=== PATIENT | female | born 1995 | race African-American/Black ===

== ENCOUNTER 2018-03-21 11:47 | Emergency (ER) | payer OTHER ==
[2018-03-21 11:56] VITALS: BP 126/83
[2018-03-21 12:17] LABS: BILIRUBIN,URINE NEGATIVE (NEGATIVE); GLUCOSE, URINE (UA) NEGATIVE (NEGATIVE); KETONES,URINE (UA) NEGATIVE (NEGATIVE); LEUKOCYTE ESTERASE, URINE NEGATIVE (NEGATIVE); NITRITE,URINE NEGATIVE (NEGATIVE); OCCULT BLOOD,URINE NEGATIVE (NEGATIVE); PROTEIN,URINE NEGATIVE (NEGATIVE); UROBILINOGEN,URINE 0.2 (NORMAL) E.U./dL (NORMAL)
[2018-03-21 12:20] LABS: CLARITY,URINE CLEAR (CLEAR)
[2018-03-21 12:21] LABS: HCG UR QUAL NEGATIVE
[2018-03-21] MEDS ORDERED: KETOROLAC 30 MG/ML VIAL IVP STA (13:06)
[2018-03-21] MEDS ORDERED: PROCHLORPERAZINE 10 MG/2 ML VIAL IVP STA (13:06)
[2018-03-21] MEDS ORDERED: diphenhydrAMINE INJ 50 MG/ML VIAL IVP STA (13:06)
[2018-03-21] MEDS ORDERED: SODIUM CHLORIDE 0.9% 1,000 ML IV ONE (13:06)
--- NOTE | 2018-03-21 13:13 | ED Physician Documentation ---
History of Present Illness - Stated complaint Stated Complaint: NECK PX,MIGRAINE,VISION CHANGES,DIZZY,NAUSEA-GLF - Chief complaint Chief Complaint: Neuro - History obtained from History obtained from: Patient - History of Present Illness Timing: How many days ago (2) Pain level max: 8 Pain level now: 8 - Additonal information Additional information: 22-year-old female status post a trip and fall yesterday, landing on the handle that was sticking up out of a piece of luggage, hitting her on the right side of the neck. Since that time has had pain in the right side of the neck that is now radiating up into the head. Causing nausea and vomiting. States she does have migraines and this does feel similar to her prior migraines. She states that she feels like her vision is "going in and out". Is not having any focal neurological deficits. Is not . Does intermittently breast-feed. Worse with movement and bright lights. Better with rest Review of Systems Constitutional: denies: Fever, Chills Respiratory: denies: Cough GI: reports: Nausea, Vomiting (x2). denies: Diarrhea : denies: Dysuria, Frequency, Hesitancy, Now EGA Musculoskeletal: denies: Back pain Neurologic: denies: Focal weakness, Numbness, Headache PD PAST MEDICAL HISTORY - Past Medical History Past Medical History: Yes Neuro: Migraines - Past Surgical History Past Surgical History: Yes General: Appendectomy - Present Medications Home Medications: Ambulatory Orders Medication Instructions Recorded Confirmed No Known Home Medications 03/21/18 03/21/18 - Allergies Allergies/Adverse Reactions: Allergies Allergy/AdvReac Type Severity Reaction Status Date / Time No Known Drug Allergies Allergy Verified 03/21/18 11:56 - Social History Does the pt smoke?: No Smoking Status: Never smoker Does the pt drink ETOH?: Yes Does the pt have substance abuse?: No PD ED PE NORMAL - Vitals Vital signs reviewed: Yes - General General: Alert and oriented X 3, No acute distress - HEENT HEENT: Atraumatic, PERRL, Ears normal, Moist mucous membranes, Pharynx benign - Neck Neck: Supple, no meningeal sign, No bony TTP, No JVD, No bruit - Cardiac Cardiac: RRR, Strong equal pulses - Respiratory Respiratory: No respiratory distress, Clear bilaterally - Abdomen Abdomen: Soft, Non tender, Non distended - Back Back: No spinal TTP - Derm Derm: Warm and dry, No rash - Neuro Neuro: Alert and oriented X 3, 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, No motor deficit, No sensory deficit, Normal speech Eye Opening: Spontaneous Motor: Obeys Commands Verbal: Oriented GCS Score: 15 Results - Vitals Vitals: Vital Signs - 24 hr 03/21/18 11:54 Temperature 36.1 C L Heart Rate 74 Respiratory 18 Rate Blood Pressure 126/83 H O2 Saturation 100 Oxygen O2 Source Room air - Labs Labs: Laboratory Tests 03/21/18 03/21/18 03/21/18 12:04 12:04 13:13 WBC 6.5 RBC 4.73 Hgb 11.8 L Hct 35.6 L MCV 75.2 L MCH 24.9 L MCHC 33.1 RDW 16.3 H Plt Count 161 MPV 9.6 Neut # (Auto) 4.7 Lymph # (Auto) 1.2 L [place] # (Auto) 0.5 Eos # (Auto) 0.1 Baso # (Auto) 0.0 Absolute Nucleated RBC 0.00 Nucleated RBC % 0.0 Sodium Potassium Chloride Carbon Dioxide Anion Gap BUN Creatinine Estimated GFR (MDRD) Glucose Calcium Total Bilirubin AST ALT Alkaline Phosphatase Total Protein Albumin Globulin Albumin/Globulin Ratio Lipase Urine Color YELLOW Urine Clarity CLEAR Urine pH 7.0 Ur Specific [place] 1.025 1.025 Urine Protein NEGATIVE Urine Glucose (UA) NEGATIVE Urine Ketones NEGATIVE Urine Occult Blood NEGATIVE Urine Nitrite NEGATIVE Urine Bilirubin NEGATIVE Urine Urobilinogen 0.2 (NORMAL) Ur Leukocyte Esterase NEGATIVE Ur Microscopic Review NOT INDICATED Urine Culture Comments NOT INDICATED Urine HCG, Qual NEGATIVE 03/21/18 13:13 WBC RBC Hgb Hct MCV MCH MCHC RDW Plt Count MPV Neut # (Auto) Lymph # (Auto) [place] # (Auto) Eos # (Auto) Baso # (Auto) Absolute Nucleated RBC Nucleated RBC % Sodium 137 Potassium 3.8 Chloride 107 Carbon Dioxide 23 Anion Gap 7.0 BUN 15 Creatinine 0.7 Estimated GFR (MDRD) 126 Glucose 92 Calcium 9.1 Total Bilirubin 0.6 AST 19 ALT 13 Alkaline Phosphatase 94 Total Protein 7.1 Albumin 4.2 Globulin 2.9 Albumin/Globulin Ratio 1.4 Lipase 28 Urine Color Urine Clarity Urine pH Ur Specific [place] Urine Protein Urine Glucose (UA) Urine Ketones Urine Occult Blood Urine Nitrite Urine Bilirubin Urine Urobilinogen Ur Leukocyte Esterase Ur Microscopic Review Urine Culture Comments Urine HCG, Qual - Rads (name of study) ct angio head Radiology: Prelim report reviewed, EMP read contemporaneously, See rad report (Normal CTA of the head. No significant vascular stenosis or aneurysm. ) ct angio neck Radiology: Prelim report reviewed, EMP read contemporaneously, See rad report (Normal CTA of the neck. No significant vascular stenosis or aneurysm. ) PD MEDICAL DECISION MAKING - ED course Complexity details: reviewed results, re-evaluated patient, considered differential, d/w patient ED course: Patient status post a neck injury that has since developed neck pain and head pain. Headache resolved with Toradol, Compazine and Benadryl IV. Tolerating p.o. without difficulty. No acute findings on angiogram of the head and neck. Will continue supportive care and follow-up with her doctor. Patient counseled regarding signs and symptoms for which I believe and urgent re-evaluation would be necessary. Patient with good understanding of and agreement to plan and is comfortable going home at this time This document was made in part using voice recognition software. While efforts are made to proofread this document, sound alike and grammatical errors may occur. Departure - Departure Disposition: 01 Home, Self Care Clinical Impression: Migraine Qualifiers: Migraine type: unspecified Status migrainosus presence: without status migrainosus Intractability: not intractable Qualified Code(s): G43.909 - Migraine, unspecified, not intractable, without status migrainosus Neck injury Qualifiers: Encounter type: initial encounter Qualified Code(s): S19.9XXA - Unspecified injury of neck, initial encounter Condition: Good Instructions: ED Headache Migraine Follow-Up: your,doctor in 1 week [Other] Comments: Your CT angiograms of your head and neck are normal today. Return if you worsen. Go home and rest today. You are not to drive for the next 6-8 hours. Discharge Date/Time: 03/21/18 15:04
[2018-03-21] MEDS ORDERED: IOVERSOL 320 100 ML VIAL IVP ONE ×2 (13:19→14:11)
[2018-03-21 13:31] LABS: BASOPHILS % (AUTO) 0.3 %; EOSINOPHILS # (AUTO) 0.1 10^3/uL (0.0-0.7); EOSINOPHILS % (AUTO) 1.1 %; HGB - HEMOGLOBIN 11.8 g/dL (12.0-16.0); LYMPHOCYTES # (AUTO) 1.2 10^3/uL (1.5-3.5); LYMPHOCYTES % (AUTO) 18.6 %; MEAN CORPUSCULAR HEMOGLOBIN 24.9 pg (27.0-31.0); MEAN CORPUSCULAR HGB CONC 33.1 g/dL (32.0-36.0); MEAN CORPUSCULAR VOLUME 75.2 fL (81.0-99.0); MEAN PLATELET VOLUME 9.6 fL (7.9-10.8); MONOCYTES # (AUTO) 0.5 10^3/uL (0.0-1.0); MONOCYTES % (AUTO) 7.2 %; NEUTROPHILS # (AUTO) 4.7 10^3/uL (1.5-6.6); NEUTROPHILS % (AUTO) 72.8 %; PLT - PLATELET COUNT 161 10^3/uL (130-450); RED BLOOD COUNT 4.73 10^6/uL (4.20-5.40); RED CELL DISTRIBUTION WIDTH 16.3 % (12.0-15.0); WHITE BLOOD COUNT 6.5 x10^3/uL (4.8-10.8)
[2018-03-21 13:48] LABS: ALBUMIN 4.2 g/dL (3.2-5.5); ALBUMIN/GLOBULIN RATIO 1.4 (1.0-2.2); BILIRUBIN,TOTAL 0.6 mg/dL (0.2-1.0); CALCIUM 9.1 mg/dL (8.5-10.3); CREATININE 0.7 mg/dL (0.4-1.0); TOTAL PROTEIN 7.1 g/dL (6.7-8.2)
--- NOTE | 2018-03-21 14:41 | CT Report ---
Reason: R sided headache and neck injury Procedure Date: 03/21/2018 Accession Number: [id number] / [id number] Procedure: CT - Neck Angio CPT Code: FULL RESULT: EXAM: CT ANGIOGRAM NECK EXAM DATE: 03/21/2018 02:07 PM. CLINICAL HISTORY: Right-sided headache and neck injury. COMPARISON: None. TECHNIQUE: Routine axial helical imaging was performed from the skull base through the aortic arch. Reconstructions: Routine multiplanar 3D MIP reconstructions. IV Contrast: 80 mL Optiray 320. Evaluation of arterial stenosis is based on a NASCET method of measurement. In accordance with CT protocol optimization, one or more of the following dose reduction techniques were utilized for this exam: automated exposure control, adjustment of mA and/or KV based on patient size, or use of iterative reconstructive technique. FINDINGS: Right Carotid: The common carotid, internal carotid, and external carotid arteries are widely patent. No dissection, significant atherosclerotic plaque, or calcification identified. Left Carotid: The common carotid, internal carotid, and external carotid arteries are widely patent. No dissection, significant atherosclerotic plaque, or calcification identified. Vertebrals: The vertebral arteries reveal no abrupt caliber change or narrowing. Great vessel origins: Widely patent. Other: No mass is present in either parotid gland or in either submandibular gland. The thyroid gland is not enlarged. No bulky lymphadenopathy is seen in the visualized mediastinum. Incidental note is made of a persistent azygos fissure in the right upper lung, a common anatomic variant. Nonenlarged lymph nodes are seen along the internal jugular chain bilaterally. No suspicious spiculated mass is present in either lung apex. No mass is identified in either orbit. Degenerative disk disease and osteophyte formation are seen at C4-C5. IMPRESSION: 1. Normal neck CT angiogram. [facility]
--- NOTE | 2018-03-21 14:48 | CT Report ---
Reason: R sided headache and neck injury Procedure Date: 03/21/2018 Accession Number: [id number] / [id number] Procedure: CT - Head Angio CPT Code: FULL RESULT: EXAM: CT ANGIOGRAM HEAD. CT SCAN OF THE HEAD WITHOUT AND WITH CONTRAST. EXAM DATE: 03/21/2018 02:09 PM CLINICAL HISTORY: Right-sided headache and neck injury. COMPARISON: CT angiogram neck from today. TECHNIQUE: - CT Scan Head: Using a multidetector scanner, axial images were acquired from the foramen magnum to the skull vertex prior to and following contrast administration. - CT Angiogram: Using a multidetector scanner, high-resolution axial images were acquired from the skull base through vertex following rapid infusion of intravenous contrast. Reformats: Multiplanar MIP reformats were reconstructed. Nascet criteria used for stenosis measurement. IV Contrast: 80 ML OPTIRAY 320. In accordance with CT protocol optimization, one or more of the following dose reduction techniques were utilized for this exam: automated exposure control, adjustment of mA and/or KV based on patient size, or use of iterative reconstructive technique. FINDINGS: CT HEAD: Ventricles and sulci are within normal limits. No extraaxial fluid collection is present. No intracranial hemorrhage is present. No enhancing mass is identified in the brain parenchyma. . Mastoid air cells are well aerated. The calvarium is intact. CT ANGIOGRAM HEAD: There is an anterior communicating artery present. A posterior communicating artery is seen bilaterally. No filling defect, high-grade stenosis, or occlusion is present in the proximal aspect of the major intracranial vessels. Expected enhancement is seen in the major dural venous sinuses. IMPRESSION: CT Head: 1. Normal contrast-enhanced head CT. CTA Head: 1. Normal CTA of the head. No significant vascular stenosis or aneurysm. [facility]
== END 2018-03-21 15:04 | disposition home or self-care (01) ==
LOC: ED 11:47
DX: G43.909 Migraine, unspecified, not intractable, without status migrainosus (principal); S19.9XXA Unspecified injury of neck, initial encounter; W18.09XA Striking against other object with subsequent fall, initial encounter
CPT/HCPCS: 36415; 70496; 70498; 80053; 81003; 81025; 83690; 85025; 96361; 96374; 96375; 99283; 99284; J1200; Q9967; 81001; 87086